=== PATIENT | male | born 1980 | race Caucasian/White ===

== ENCOUNTER 2023-10-05 15:03 | Emergency (ER) | payer OTHER ==
[~2023-10-05] VITALS: Ht 177.8 cm; Wt 90.7 kg
[2023-10-05 15:08] VITALS: BP 154/92; TEMP 98.5; O2SAT 96
== END 2023-10-05 15:40 ==
LOC: ER 15:10
DX: Z02.89 Encounter for other administrative examinations (principal); F17.200 Nicotine dependence, unspecified, uncomplicated